=== PATIENT | female | born 1965 | race Caucasian/White ===

== ENCOUNTER 2016-05-17 19:06 | Emergency (ER) | payer OTHER ==
--- NOTE | 2016-05-17 19:57 | DIAGNOSTIC IMAGING REPORT ---
PROCEDURE: CT ABDOMEN/PELVIS W/O CONTRAST INDICATION: Lower abdominal pain and nausea. TECHNIQUE: Noncontrast axial images were obtained of the entire abdomen and pelvis with sagittal and coronal reformations. COMPARISON: None. FINDINGS: ABDOMEN: Lung base are clear. Heart size is normal. Bilateral breast implants. Cholecystectomy. Liver, pancreas, spleen, adrenal glands, kidneys and abdominal aorta are normal. Small shotty periaortic lymph nodes. PELVIS: Cassie cecal surgical changes suggestive of an appendectomy. Moderate sigmoid diverticulosis with mild inflammatory changes of the mid sigmoid colon and trace free fluid. There is no abscess or free air. Hysterectomy. Normal bladder. Bones are unremarkable . IMPRESSION: 1. Sigmoid diverticulitis. No abscess or free air. 2. Cholecystectomy, appendectomy and hysterectomy 3. Results discussed with Dr. Abrams All CT scans at this facility use dose modulation, iterative reconstruction, and/or weight-based dosing when appropriate to reduce radiation dose to as low as reasonably achievable.
--- NOTE | 2016-05-17 20:35 | ED CLINICAL REPORT ---
Clinical Report - Physicians/Mid Levels [facility] [address] [place] [address] 05/17/2016 19:07 Patient: RUBY JONES Time Seen: 19:15. Arrived- By private vehicle. Historian- patient. HISTORY OF PRESENT ILLNESS Chief Complaint: ABDOMINAL PAIN. At its maximum, severity described as moderate. When seen in the E.D., severity described as moderate. Modifying factors- worsened by movement. Relieved by rest. This started several days ago and is still present. It was gradual in onset and has been waxing/waning. It is described as "pain" and dull. No radiation. It is described as located in the right lower quadrant, right pelvis, left lower quadrant and left pelvis and in the lower abdomen. It is described as located in the pelvic area. The patient has had nausea. No vomiting or diarrhea. Similar symptoms previously: Recent medical care: The patient was seen recently at another facility in a clinic. Diagnosis: diverticulitis. ( Seen at [facility] and clinically diagnosed with diverticulitis and begun on Augmentin 2 days ago). REVIEW OF SYSTEMS No constipation, black stools, hematemesis, difficulty with urination or pain with urination. No bloody stools, fever, sore throat, chest pain or difficulty breathing. No cough or back pain. Denies current . All systems otherwise negative, except as recorded above. PAST HISTORY See nurses notes. Hypothyroidism. Diverticulitis. Depression. Surgeries: Appendectomy. Cholecystectomy. Had hysterectomy. Laparoscopy. Oophorectomy. Medications: Augmentin Oral 875 mg, 2x a day. Levothyroxine Sodium Oral 50 mcg, daily. Sertraline HCl Oral 50 mg, daily. Tramadol HCL Oral 50 mg, 4x a day as needed. Estrodigrel. Allergies: Iodine. Definite Severe(SOB). SOCIAL HISTORY Smoker- current status unknown. Alcohol use; consumes two glasses of wine daily. No drug use. Is a local resident. ADDITIONAL NOTES The nursing notes have been reviewed. PHYSICAL EXAM Vital Signs: 05/17/2016 19:14 BP: 150/86. HR: 119. RR: 12. O2 saturation: 97%. Temp: 98 F. Pain level now: 10. Appearance: Alert. Oriented X3. Patient in mild distress. Eyes: Eyes normal inspection. No scleral icterus or pale conjunctivae. ENT: Pharynx normal. No pharyngeal erythema or tonsillar exudate. The mucous membranes are not dry. Neck: Normal inspection. Neck supple. CVS: Normal heart rate and rhythm. Heart sounds normal. Pulses normal. Respiratory: No respiratory distress. Breath sounds normal. Back: Normal inspection. No CVA tenderness. Skin: Skin warm and dry. Normal skin color. Normal skin turgor. Extremities: Extremities exhibit normal ROM. No lower extremity edema. Neuro: Oriented X 3. No motor deficit. No sensory deficit. LABS, X-RAYS, AND EKG Abdominal CT: There is evidence of diverticulitis. No inflammatory phlegmon, focal abscess or perforation with free air. Study type: abdomen and pelvis. Abdominal CT performed with contrast and without contrast. The study was independently viewed by me, interpreted by the radiologist and discussed with the radiologist. Laboratory Tests: UA-Culture if indicated: (JUN: 05/17/2016 19:18) ( Mscvd 05/17/2016 19:47) Final results Test Result Flag Units (Reference) URINE COLOR YELLOW URINE APPEARANCE CLEAR URINE GLUCOSE NEGATIVE (NEGATIVE) URINE BILIRUBIN NEGATIVE (NEGATIVE) URINE KETONE NEGATIVE (NEGATIVE) URINE SPECIFIC GRAVITY 1.025 (1.010-1.030) URINE PH 6.0 (5.0-8.0) URINE PROTEIN NEGATIVE (NEGATIVE) URINE UROBILINOGEN >=8.0 EU/dL (0.2-1.0) URINE NITRITE NEGATIVE (NEGATIVE) URINE BLOOD NEGATIVE (NEGATIVE) URINE LEUK ESTERASE NEGATIVE (NEGATIVE) URINE RBC NONE SEEN rbc/hpf (0-1) URINE WBC 0-1 wbc/hpf (0-1) URINE EPITHELIAL CELLS 1-3 EPI/hpf (0-5) URINE BACTERIA NONE SEEN (NONE SEEN) URINE COMMENT CULT NOT INDICATED URINE CULTURES ARE SET-UP BASED ON THE FOLLOWING CRITERIA:POSITIVE NITRITEPOSITIVE LEUKOCYTE ESTERASEGREATER THAN 10 WHITE BLOOD CELLSMODERATE (2+) OR GREATER BACTERIA CBC w Diff: (JUN: 05/17/2016 19:18) ( MsgRcvd 05/17/2016 19:33) Final results Test Result Flag Units (Reference) WHITE BLOOD COUNT 14.1 H K/uL (4.5-11.5) RED BLOOD COUNT 4.18 M/uL (4.00-5.20) HEMOGLOBIN 14.4 gm/dL (12.0-16.0) HEMATOCRIT 42.2 % (36.0-46.0) MEAN CELL VOLUME 101 H fL (80-100) MEAN CORPUSCULAR HGB 34 pg (26-34) MEAN CORPUSCULAR HGB CONC 34 g/dL (31-37) RED CELL DISTRIBUTION WIDTH 13.3 % (11.6-14.8) PLATELET COUNT 267 K/uL (150-400) NEUTROPHIL % 75.5 H % (50-75) LYMPH % 16.4 L % (25-40) MONO % 5.9 % (3-14) EOSINOPHIL % 1.6 % (0-4) BASOPHIL % 0.6 % (0-2) PT with INR: (JUN: 05/17/2016 19:18) ( [facility] 05/17/2016 19:50) Final results Test Result Flag Units (Reference) INR 1.0 (0.8-1.2) Low Intensity Therapy: INR 1.5-2.0 PT range 18.5-23.1Mod.Intensity Therapy: INR 2.0-3.0 PT range 23.1-31.5High Intensity Therapy: INR 2.5-3.5 PT range 27.4-35.5High Intensity Therapy 2: INR 3.0-4.0 PT range 31.5-39.3 TSH: (JUN: 05/17/2016 19:25) ( [facility] 05/17/2016 20:00) Final results Test Result Flag Units (Reference) THYROID STIMULATING HORMONE 4.911 H uIU/mL (0.34-3.74) BNP: (JUN: 05/17/2016 19:25) ( [facility] 05/17/2016 20:11) Final results Test Result Flag Units (Reference) B-TYPE NATRIURETIC PEPTIDE 33.1 pg/ml (5-100) Lipase: (JUN: 05/17/2016 19:25) ( [facility] 05/17/2016 19:52) Final results Test Result Flag Units (Reference) LIPASE 141 U/L (73-393) AMYLASE 22 L U/L (25-115) CHEM 13 PANEL: (JUN: 05/17/2016 19:18) ( [facility] 05/17/2016 19:49) Final results Test Result Flag Units (Reference) GLUCOSE 119 H mg/dL (70-110) BUN 8 mg/dL (7-18) CREATININE 0.8 mg/dL (0.6-1.3) Estimated GFR >60 mL/min Estimated GFR- >60 mL/min Note: Persistent reduction over 3 months in eGFR<60 mL/min/1.73 m2 defines CKD. Patients with eGFR values>=60 mL/min/1.73 m2 may also have CKD if evidence ofpersistent proteinuria. Additional information may be foundat www.kidney.org. SODIUM 136 mmol/L (136-145) POTASSIUM 3.8 mmol/L (3.5-5.1) CHLORIDE 102 mmol/L (98-107) CARBON DIOXIDE 26 mmol/L (21-32) CALCIUM 9.3 mg/dL (8.5-10.1) TOTAL PROTEIN 8.0 g/dL (6.4-8.2) ALBUMIN 3.7 g/dL (3.3-5.0) BILIRUBIN, TOTAL 1.6 H mg/dL (0.0-1.0) ALKALINE PHOSPHATASE 91 U/L (46-116) AST (SGOT) 41 H U/L (15-37) ALT (SGPT) 53 U/L (12-78) MAGNESIUM 2.1 mg/dL (1.8-2.4) CPK 60 U/L (24-260) TROPONIN I <0.05 L ng/mL (0.00-1.5) TROPONIN REFERENCE RANGE:<0.1 NEGATIVE0.1-1.5 INDETERMINANT>1.5 POSITIVE . Pulse Oximetry: 05/17/2016 19:14 O2 saturation: 97%. (FIO2 - room air). Interpretation: normal. PROGRESS AND PROCEDURES Course of Care: Normal Saline 1 liter IVPB given. Zofran 4 mg IVP given. Dilaudid 1 mg IVP given. Pt reports "iodine allergy" - had reaction after IV contrast for ?abdominal CT" - reaction was ?palpitations (no SOB, swelling or hives) and occurred over [address] abd c/w mild acute diverticulitis 22:15. Evaluation after IV analgesia, IV antibiotics and IV antiemetic. Patient is stable. Physical exam findings are improved. Symptoms much better. Patient/family counseled. Disposition: Discharged. Condition: stable and improved. CLINICAL IMPRESSION Acute diverticulitis of the colon. No perforation, bleeding, abscess, peritonitis or obstruction. Moderate leukocytosis. No lymphocytosis. INSTRUCTIONS Drink plenty of fluids. No alcohol until released. Do not smoke. Seek medical help to quit smoking. (Mandatory recheck in 24 - 48 hours unless better). Warnings: Further evaluation is necessary in order to recheck abnormal lab, obtain test results, conduct further tests and assess the possibility of serious illness. It is very important to follow up with a physician. SEDATIVE MEDICATION: You were given sedative medication during your visit. Do not drive or operate dangerous machinery. CONTROLLED SUBSTANCE WARNINGS. GENERAL WARNINGS: Return or contact your physician immediately if your condition worsens or changes unexpectedly, if not improving as expected, or if other problems arise. Your Current Medications: STOP TAKING THE FOLLOWING MEDICATIONS: Augmentin Oral : 875 mg 2x a day. Prescription Medications: Cipro 500 mg: take 1 tab orally every 12 hours for 10 days. Dispense twenty (20). No refills. Substitution is permissible. Flagyl 500 mg: Take 1 tablet orally every 6 hours for 10 days. No refill. Substitution is permissible Oxycodone/APAP 5 mg/325 mg: take 1-2 tablets orally every 8 hours as needed for pain. Dispense twelve (12). No refill. Follow-up: Follow up with your doctor in about two days. (Electronically signed by Bentley Abrams DO 05/17/2016 22:25)
--- NOTE | 2016-05-17 20:35 | ED CLINICAL REPORT ---
Clinical Report - Physicians/Mid Levels [facility] [address] [place] [address] 05/17/2016 19:07 Patient: RUBY JONES Time Seen: 19:15. Arrived- By private vehicle. Historian- patient. HISTORY OF PRESENT ILLNESS Chief Complaint: ABDOMINAL PAIN. At its maximum, severity described as moderate. When seen in the E.D., severity described as moderate. Modifying factors- worsened by movement. Relieved by rest. This started several days ago and is still present. It was gradual in onset and has been waxing/waning. It is described as "pain" and dull. No radiation. It is described as located in the right lower quadrant, right pelvis, left lower quadrant and left pelvis and in the lower abdomen. It is described as located in the pelvic area. The patient has had nausea. No vomiting or diarrhea. Similar symptoms previously: Recent medical care: The patient was seen recently at another facility in a clinic. Diagnosis: diverticulitis. ( Seen at [facility] and clinically diagnosed with diverticulitis and begun on Augmentin 2 days ago). REVIEW OF SYSTEMS No constipation, black stools, hematemesis, difficulty with urination or pain with urination. No bloody stools, fever, sore throat, chest pain or difficulty breathing. No cough or back pain. Denies current . All systems otherwise negative, except as recorded above. PAST HISTORY See nurses notes. Hypothyroidism. Diverticulitis. Depression. Surgeries: Appendectomy. Cholecystectomy. Had hysterectomy. Laparoscopy. Oophorectomy. Medications: Augmentin Oral 875 mg, 2x a day. Levothyroxine Sodium Oral 50 mcg, daily. Sertraline HCl Oral 50 mg, daily. Tramadol HCL Oral 50 mg, 4x a day as needed. Estrodigrel. Allergies: Iodine. Definite Severe(SOB). SOCIAL HISTORY Smoker- current status unknown. Alcohol use; consumes two glasses of wine daily. No drug use. Is a local resident. ADDITIONAL NOTES The nursing notes have been reviewed. PHYSICAL EXAM Vital Signs: 05/17/2016 19:14 BP: 150/86. HR: 119. RR: 12. O2 saturation: 97%. Temp: 98 F. Pain level now: 10. Appearance: Alert. Oriented X3. Patient in mild distress. Eyes: Eyes normal inspection. No scleral icterus or pale conjunctivae. ENT: Pharynx normal. No pharyngeal erythema or tonsillar exudate. The mucous membranes are not dry. Neck: Normal inspection. Neck supple. CVS: Normal heart rate and rhythm. Heart sounds normal. Pulses normal. Respiratory: No respiratory distress. Breath sounds normal. Back: Normal inspection. No CVA tenderness. Skin: Skin warm and dry. Normal skin color. Normal skin turgor. Extremities: Extremities exhibit normal ROM. No lower extremity edema. Neuro: Oriented X 3. No motor deficit. No sensory deficit. LABS, X-RAYS, AND EKG Abdominal CT: There is evidence of diverticulitis. No inflammatory phlegmon, focal abscess or perforation with free air. Study type: abdomen and pelvis. Abdominal CT performed with contrast and without contrast. The study was independently viewed by me, interpreted by the radiologist and discussed with the radiologist. Laboratory Tests: UA-Culture if indicated: (JUN: 05/17/2016 19:18) ( Mscvd 05/17/2016 19:47) Final results Test Result Flag Units (Reference) URINE COLOR YELLOW URINE APPEARANCE CLEAR URINE GLUCOSE NEGATIVE (NEGATIVE) URINE BILIRUBIN NEGATIVE (NEGATIVE) URINE KETONE NEGATIVE (NEGATIVE) URINE SPECIFIC GRAVITY 1.025 (1.010-1.030) URINE PH 6.0 (5.0-8.0) URINE PROTEIN NEGATIVE (NEGATIVE) URINE UROBILINOGEN >=8.0 EU/dL (0.2-1.0) URINE NITRITE NEGATIVE (NEGATIVE) URINE BLOOD NEGATIVE (NEGATIVE) URINE LEUK ESTERASE NEGATIVE (NEGATIVE) URINE RBC NONE SEEN rbc/hpf (0-1) URINE WBC 0-1 wbc/hpf (0-1) URINE EPITHELIAL CELLS 1-3 EPI/hpf (0-5) URINE BACTERIA NONE SEEN (NONE SEEN) URINE COMMENT CULT NOT INDICATED URINE CULTURES ARE SET-UP BASED ON THE FOLLOWING CRITERIA:POSITIVE NITRITEPOSITIVE LEUKOCYTE ESTERASEGREATER THAN 10 WHITE BLOOD CELLSMODERATE (2+) OR GREATER BACTERIA CBC w Diff: (JUN: 05/17/2016 19:18) ( MsgRcvd 05/17/2016 19:33) Final results Test Result Flag Units (Reference) WHITE BLOOD COUNT 14.1 H K/uL (4.5-11.5) RED BLOOD COUNT 4.18 M/uL (4.00-5.20) HEMOGLOBIN 14.4 gm/dL (12.0-16.0) HEMATOCRIT 42.2 % (36.0-46.0) MEAN CELL VOLUME 101 H fL (80-100) MEAN CORPUSCULAR HGB 34 pg (26-34) MEAN CORPUSCULAR HGB CONC 34 g/dL (31-37) RED CELL DISTRIBUTION WIDTH 13.3 % (11.6-14.8) PLATELET COUNT 267 K/uL (150-400) NEUTROPHIL % 75.5 H % (50-75) LYMPH % 16.4 L % (25-40) MONO % 5.9 % (3-14) EOSINOPHIL % 1.6 % (0-4) BASOPHIL % 0.6 % (0-2) PT with INR: (JUN: 05/17/2016 19:18) ( [facility] 05/17/2016 19:50) Final results Test Result Flag Units (Reference) INR 1.0 (0.8-1.2) Low Intensity Therapy: INR 1.5-2.0 PT range 18.5-23.1Mod.Intensity Therapy: INR 2.0-3.0 PT range 23.1-31.5High Intensity Therapy: INR 2.5-3.5 PT range 27.4-35.5High Intensity Therapy 2: INR 3.0-4.0 PT range 31.5-39.3 TSH: (JUN: 05/17/2016 19:25) ( [facility] 05/17/2016 20:00) Final results Test Result Flag Units (Reference) THYROID STIMULATING HORMONE 4.911 H uIU/mL (0.34-3.74) BNP: (JUN: 05/17/2016 19:25) ( [facility] 05/17/2016 20:11) Final results Test Result Flag Units (Reference) B-TYPE NATRIURETIC PEPTIDE 33.1 pg/ml (5-100) Lipase: (JUN: 05/17/2016 19:25) ( [facility] [place]/17/[place] 19:52) Final results Test Result Flag Units (Reference) LIPASE 141 U/L (73-393) AMYLASE 22 L U/L (25-115) CHEM 13 PANEL: (JUN: 05/17/2016 19:18) ( [facility] 05/17[facility]2016 19:49) Final results Test Result Flag Units (Reference) GLUCOSE 119 H mg/dL (70-110) BUN 8 mg/dL (7-18) CREATININE 0.8 mg/dL (0.6-1.3) Estimated GFR >60 mL/min Estimated GFR- >60 mL/min Note: Persistent reduction over 3 months in eGFR<60 mL/min/1.73 m2 defines CKD. Patients with eGFR values>=60 mL/min/1.73 m2 may also have CKD if evidence ofpersistent proteinuria. Additional information may be foundat www.kidney.org. SODIUM 136 mmol/L (136-145) POTASSIUM 3.8 mmol/L (3.5-5.1) CHLORIDE 102 mmol/L (98-107) CARBON DIOXIDE 26 mmol/L (21-32) CALCIUM 9.3 mg/dL (8.5-10.1) TOTAL PROTEIN 8.0 g/dL (6.4-8.2) ALBUMIN 3.7 g/dL (3.3-5.0) BILIRUBIN, TOTAL 1.6 H mg/dL (0.0-1.0) ALKALINE PHOSPHATASE 91 U/L (46-116) AST (SGOT) 41 H U/L (15-37) ALT (SGPT) 53 U/L (12-78) MAGNESIUM 2.1 mg/dL (1.8-2.4) CPK 60 U/L (24-260) TROPONIN I <0.05 L ng/mL (0.00-1.5) TROPONIN REFERENCE RANGE:<0.1 NEGATIVE0.1-1.5 INDETERMINANT>1.5 POSITIVE . Pulse Oximetry: 05/17/2016 19:14 O2 saturation: 97%. (FIO2 - room air). Interpretation: normal. PROGRESS AND PROCEDURES Course of Care: Normal Saline 1 liter IVPB given. Zofran 4 mg IVP given. Dilaudid 1 mg IVP given. Pt reports "iodine allergy" - had reaction after IV contrast for ?abdominal CT" - reaction was ?palpitations (no SOB, swelling or hives) and occurred over [address] abd c/w mild acute diverticulitis 22:15. Evaluation after IV analgesia, IV antibiotics and IV antiemetic. Patient is stable. Physical exam findings are improved. Symptoms much better. Patient/family counseled. Disposition: Discharged. Condition: stable and improved. CLINICAL IMPRESSION Acute diverticulitis of the colon. No perforation, bleeding, abscess, peritonitis or obstruction. Moderate leukocytosis. No lymphocytosis. INSTRUCTIONS Drink plenty of fluids. No alcohol until released. Do not smoke. Seek medical help to quit smoking. (Mandatory recheck in 24 - 48 hours unless better). Warnings: Further evaluation is necessary in order to recheck abnormal lab, obtain test results, conduct further tests and assess the possibility of serious illness. It is very important to follow up with a physician. SEDATIVE MEDICATION: You were given sedative medication during your visit. Do not drive or operate dangerous machinery. CONTROLLED SUBSTANCE WARNINGS. GENERAL WARNINGS: Return or contact your physician immediately if your condition worsens or changes unexpectedly, if not improving as expected, or if other problems arise. Your Current Medications: STOP TAKING THE FOLLOWING MEDICATIONS: Augmentin Oral : 875 mg 2x a day. Prescription Medications: Cipro 500 mg: take 1 tab orally every 12 hours for 10 days. Dispense twenty (20). No refills. Substitution is permissible. Flagyl 500 mg: Take 1 tablet orally every 6 hours for 10 days. No refill. Substitution is permissible Oxycodone/APAP 5 mg/325 mg: take 1-2 tablets orally every 8 hours as needed for pain. Dispense twelve (12). No refill. Follow-up: Follow up with your doctor in about two days. (Electronically signed by Bentley Abrams DO 05/17/2016 22:25)
--- NOTE | 2016-05-17 20:36 | ED NURSING NOTES ---
Clinical Report - Nurses [facility] [address] [place] [address] 05/17/2016 19:07 Patient: RUBY JONES TRIAGE Triage time 19:14 May 17 2016. Acuity: LEVEL 3. Chief Complaint: ABDOMINAL PAIN and NAUSEA. Alert. BEN COMA SCORE: [place] Coma Scale: 15- eyes open spontaneously (4); best verbal response- oriented x 4 (5); best motor response- obeys commands (6). --19:33 Sadi Lackey R.N. 19:14 05/17/16. BP: 150/86. HR: 119. RR: 12. O2 saturation: 97% on room air. Temp: 98 F. Pain level now: 410. Additional comments: Abd pain. --19:33 Sadi Lackey R.N. Weight: 70.7 kg stated. Height/Length: 63 inches Per Patient. BMI: 27.6. --19:16 Sadi Lackey R.N. Medications Estrodigrel. --19:20 Sadi Lackey R.N. Tramadol HCL Oral 50 mg, 4x a day as needed. --19:20 Sadi Lackey R.N. Sertraline HCl Oral 50 mg, daily. --19:20 Sadi Lackey R.N. Levothyroxine Sodium Oral 50 mcg, daily. --19:21 Sadi Lackey R.N. Augmentin Oral 875 mg, 2x a day. --19:22 Sadi Lackey R.N. Allergies Iodine. Definite Severe(SOB) --19:25 Sadi Lackey R.N. Medication/allergy information source: the patient. --19:33 Sadi Lackey R.N. History Arrived by private vehicle. Historian: patient. ( abdominal Pain, which started about 3 days ago. Pt states a hx of Diverticulitis.). Onset. (about 3 days ago). She has had nausea and abdominal pain. Last oral intake by patient was (about 1 hour (scrambled egg)). Treatment CUSTOMER TECHNICAL SERVICES MANAGER: ([facility] and [facility] [place] on Tramadol and Augmentin and told to come to the ED if she didn't improve.). PAST MEDICAL HX: Immunizations: status is unknown. The patient has had a hysterectomy. SOCIAL HX: Heavy tobacco smoker (cigarette)- 1 pack per day. Alcohol use; consumes two wine daily. No drug use. No recent travel. No infectious disease exposure. No known contact with a sick individual. ABUSE ASSESSMENT: No report of abuse. FALL RISK ASSESSMENT: Fall risk assessment completed. No fall risk identified. NUTRITIONAL RISK ASSESSMENT: The nutritional risk assessment revealed no deficiencies. FUNCTIONAL ASSESSMENT: Functional assessment: no impairments noted. LEARNING NEEDS ASSESSMENT: The learning needs assessment revealed no barriers. SKIN INTEGRITY ASSESSMENT: Skin integrity risk assessment completed. No skin integrity risk identified. --19:33 Sadi Lackey R.N. PROBLEMS: Thyroid Disease. Diverticulitis. --19:29 Sadi Lackey R.N. ADDITIONAL SURGERIES: Appendectomy. Cholecystectomy. Oophorectomy. Salpingectomy. --19:29 Sadi Lackey R.N. Interventions ID band on patient. To treatment room. --19:33 Sadi Lackey R.N. PHYSICAL ASSESSMENT Ambulatory to room. GENERAL / NEURO / PSYCH: Alert. Oriented X 4. HEENT: Mucous membranes are pink. RESPIRATORY: Respirations not labored. CVS: Cardiac rhythm: (tachycardia). GI / : Abdominal tenderness in the periumbilical area, suprapubic area and lower abdomen. SKIN: Skin is warm and dry. --19:34 Sadi Lackey R.N. NURSING PROGRESS NOTES Patient gowned. Reassurance given. Patient identifiers checked. Call light placed in reach. Side rails up. Bed placed in lowest position. Brakes of bed on. Patient ready for evaluation- chart flagged and ED physician notified. --19:34 Sadi Lackey R.N. 19:21 05/17/2016 Site #1 started via IV in the left antecubital space with an 20g angiocath, with aseptic technique and good blood return; one attempt. Blood drawn: rainbow set. Labeled in the presence of the patient and sent to the lab. Saline lock flushed with 10 mL saline (start by KVNG Brownlee). --19:36 Sadi Lackey R.N. 19:40 05/17/2016 Started bag #1 1000 mL IV Fluids IV NS (Saline); at 1000 mL/hr over 60 minute(s) via site #1. Allergies verified and confirmed 5 rights. IV patency established. IV site checked: no pain, redness, or swelling. IV flushed thoroughly pre- and post-medication administration. --19:45 Sadi Lackey R.N. Patient transported to CT by stretcher with tech. (:May 17 2016). --19:46 Sadi Lackey R.N. Patient returned from CT by stretcher with tech. (May 17 2016). --19:46 Sadi Lackey R.N. 19:45 05/17/16. Temp: 100.4 F. --19:48 Sadi Lackey R.N. 19:49 05/17/2016 Zofran (Ondansetron HCl) IVP 4 mg given over 2 minute(s) via site #1. Allergies verified and confirmed 5 rights. IV patency established. IV site checked: no pain, redness, or swelling. IV flushed thoroughly pre- and post-medication administration. IVP given by RN. --19:55 Sadi Lackey R.N. 19:50 05/17/2016 Dilaudid (HYDROmorphone HCl PF) IVP 1 mg given over 2 minute(s) via site #1. Allergies verified, confirmed 5 rights and sedative warning given. IV patency established. IV site checked: no pain, redness, or swelling. IV flushed thoroughly pre- and post-medication administration. IVP given by RN. --19:55 Sadi Lackey R.N. 19:30 late entry -. Checked patient name, birthdate and medical record number: patient confirmed. Instructions provided to collect clean catch urine and patient verbalized understanding. Clean catch urine collected with return of jose-colored clear urine; odor is normal; sample sent to lab for urinalysis and culture. Specimen labeled in the presence of the patient. --19:56 Sadi Lackey R.N. 20:40 05/17/2016 Started 500 mg of Flagyl (MetroNIDAZOLE in NaCl) IVPB in bag #1 100 mL; at 100 mL/hr over 60 minute(s) via site #1 via IV pump. Allergies verified and confirmed 5 rights. IV patency established. IV site checked: no pain, redness, or swelling. IV flushed thoroughly pre- and post-medication administration. --20:50 Sadi Lackey R.N. 20:52 05/17/2016 Levaquin (Levofloxacin) PO Tablets 750 mg given. Allergies verified and confirmed 5 rights. --20:57 Sadi Lackey R.N. 21:47 05/17/2016 Flagyl IVPB Discontinued: bag #1 completed. Total amount infused: 100 mL. IV patency established. IV site checked: no pain, redness, or swelling. IV flushed thoroughly. --21:48 Junior Babin 20:00 05/17/16. BP: 123/78. HR: 94. RR: 16. O2 saturation: 97% on room air. Pain level now: 0/10. --23:00 Sadi Lackey R.N. DISPOSITION / DISCHARGE Departure time: 0. --22:52 Sadi Lackey R.N. 22:00 05/17/16. BP: 121/76. HR: 94. RR: 16. O2 saturation: 98% on room air. Temp: 99.6 F. Pain level now: 1/10. Additional comments: Abdominal Pain. --22:55 Sadi Lackey R.N. 22:10. Condition at departure: improved. No learning barriers present. Discharge instructions provided and reviewed with the patient. Reviewed medication(s) precautions information. Reviewed referral to family practice for followup. Patient verbalized understanding. Written instructions provided in Kyrgyz. The patient was discharged by the physician. She was discharged home and accompanied by spouse. She left the Emergency Department ambulatory and via private vehicle. Spouse driving. --22:57 Sadi Lackey R.N. Locked/Released at 05/17/2016 23:01 by Sadi Lackey R.N.
--- NOTE | 2016-05-17 20:36 | ED ORDER SUMMARY ---
..... Patient: RUBY JONES OrderSheet [facility] VisitID: [id number] [address] [place] [address] 51y, F Registration Date/Time: 05/17/2016 ORDER SHEET Weight: 70.7 kg (stated) Allergies: Iodine GENERAL ORDERS: UA-Culture if indicated Urgent (19:16 05/17/2016 [facility] (Ack 19:24 CHategekimana) (19:45 JRomanelli R.N.) Amylase Urgent (19:16 05/17/2016 PHutchinson DO) (Ack 19:24 CHategekimana) (19:45 JRomanelli R.N.) Lipase Urgent (19:16 05/17/2016 [facility]) (Ack 19:24 CHategekimana) (19:45 JRomanelli R.N.) PT with INR Urgent (19:16 05/17/2016 [facility]) (Ack 19:24 Estuardoekimana) (19:45 JRomanelli R.N.) Cardiac Panel Stat (19:16 [facility]17/2016 [facility] (Ack 19:24 Estuardoekimana) (19:45 JRomanelli R.N.) BNP Urgent (19:16 05/17/2016 [facility] (Ack 19:24 Estuardoekimana) (19:45 JRomanelli R.N.) NPO (19:16 05/17/2016 [facility]) (19:45 JRomanelli R.N.) CT Abd/Pel wo Cont Urgent (19:31 05/17/2016 PHgachinson DO) (19:45 JRomanelli R.N.) TSH Urgent (19:35 05/17/2016 [facility]) (19:45 JRomanelli R.N.) MEDICATION ORDERS: Levaquin PO 750 mg (NOW) (19:57 05/17/2016 [facility]) (20:57 JRomanelli R.N.) IV FLUIDS: IV NS : initial bolus 1000 mL (1000 mL/hr), then 500 mL/hr for X2 (NOW) (19:16 05/17/2016 Hailey AGRAWAL) (19:45 Vamsi R.N.) Zofran IV 4 mg (NOW) (19:16 05/17/2016 [facility]) (19:55 Vamsi R.N.) Dilaudid IV 1 mg (HIGH ALERT MEDICATION, NOW) (19:38 05/17/2016 [facility]) (19:55 Vamsi R.N.) Flagyl IV 500 mg/100mL (NOW) (19:57 05/17/2016 [facility]) (20:50 Vamsi R.N.) ORDER SHEET NOTES: [Electronically signed by Bentley Abrams DO (22:25 05/17/2016)] [Electronically signed by Sadi Lackey R.N. (23:05/17/2016)] [Electronically locked/signed by Sadi Lackey R.N. (23:05/17/2016)]
--- NOTE | 2016-05-17 20:36 | ED ORDER SUMMARY ---
..... Patient: RUBY JONES OrderSheet [facility] VisitID: [id number] [address] [place] [address] 51y, F Registration Date/Time: 05/17/2016 ORDER SHEET Weight: 70.7 kg (stated) Allergies: Iodine GENERAL ORDERS: UA-Culture if indicated Urgent (19:16 05/17/2016 [facility] (Ack 19:24 CHategekimana) (19:45 JRomanelli R.N.) Amylase Urgent (19:16 05/17/2016 PHutchinson DO) (Ack 19:24 CHategekimana) (19:45 JRomanelli R.N.) Lipase Urgent (19:16 05/17/2016 [facility]) (Ack 19:24 CHategekimana) (19:45 JRomanelli R.N.) PT with INR Urgent (19:16 05/17/2016 [facility]) (Ack 19:24 Estuardoekimana) (19:45 JRomanelli R.N.) Cardiac Panel Stat (19:16 [facility]17/2016 [facility] (Ack 19:24 Estuardoekimana) (19:45 JRomanelli R.N.) BNP Urgent (19:16 05/17/2016 [facility] (Ack 19:24 Estuardoekimana) (19:45 JRomanelli R.N.) NPO (19:16 05/17/2016 [facility]) (19:45 JRomanelli R.N.) CT Abd/Pel wo Cont Urgent (19:31 05/17/2016 PHalchinson DO) (19:45 JRomanelli R.N.) TSH Urgent (19:35 [facility]/17/2016 [facility] (19:45 JRomanelli R.N.) MEDICATION ORDERS: Levaquin PO 750 mg (NOW) (19:57 05/17/2016 [facility]) (20:57 JRomanelli R.N.) IV FLUIDS: IV NS : initial bolus 1000 mL (1000 mL/hr), then 500 mL/hr for X2 (NOW) (19:16 05/17/2016 Hailey AGRAWAL) (19:45 Vamsi R.N.) Zofran IV 4 mg (NOW) (19:16 05/17/2016 [facility] (19:55 Vamsi R.N.) Dilaudid IV 1 mg (HIGH ALERT MEDICATION, NOW) (19:38 05/17/2016 [facility] (19:55 Vamsi R.N.) Flagyl IV 500 mg/100mL (NOW) (19:57 05/17/2016 [facility] (20:50 Vamsi R.N.) ORDER SHEET NOTES: [Electronically signed by Bentley Abrams DO (22:25 05/17/2016)] [Electronically signed by Sadi Lackey R.N. (23:05/17/2016)] [Electronically locked/signed by Sadi Lackey R.N. (23:05/17/2016)]
--- NOTE | 2016-05-17 23:01 | ED MED RECONCILIATION SUMMARY ---
Patient: RUBY JONES Medication Reconciliation Report [facility] VisitID: [id number] [address] [place] [address] 51y, F Registration Date/Time: 05/17/2016 Weight: 70.7 kg Height/Length: 63 in. BMI: 27.6 ALLERGIES: Iodine The patient's Home Medications are listed below: STOP TAKING THE FOLLOWING MEDICATIONS: Augmentin Oral 875 mg, 2x a day THE FOLLOWING MEDICATIONS NEED TO BE RECONCILED: Estrodigrel Levothyroxine Sodium Oral 50 mcg, daily Sertraline HCl Oral 50 mg, daily Tramadol HCL Oral 50 mg, 4x a day The source(s) of the original Home Medication information: patient The following Medications were given to the patient in the Emergency Department: IV NS IV Fluids bolus 0, then 1000 mL/hr, administered: 05/17/2016 7:40:00 PM Zofran [IVP] IVP 4 mg, administered: 05/17/2016 7:49:00 PM Dilaudid [IVP] IVP 1 mg, administered: 05/17/2016 7:50:00 PM Flagyl [IVPB] IVPB bolus 0, then 500 mg 100 mL/hr, administered: 05/17/2016 8:40:00 PM Levaquin [PO] PO 750 mg, administered: 05/17/2016 8:52:00 PM The following Medications were prescribed to the patient: Cipro 500 mg: take 1 tab orally every 12 hours for 10 days. Dispense twenty (20). No refills. Substitution is permissible. -- Bentley Abrams DO Flagyl 500 mg: Take 1 tablet orally every 6 hours for 10 days. No refill. Substitution is permissible -- Bentley Abrams DO Oxycodone/APAP 5 mg/325 mg: take 1-2 tablets orally every 8 hours as needed for pain. Dispense twelve (12). No refill. -- Bentley Abrams DO
--- NOTE | 2016-05-17 23:01 | ED MAR SUMMARY ---
..... Medication Administration Record [facility] [address] [place] [address] Patient: RUBY JONES Visit ID: [id number] 51y, F Weight: 70.7 kg Height/Length: 63 in BMI: 27.6 ALLERGIES: Iodine Start 19:40 05/17/2016 Sadi Lackey R.N. Medication Administered: IV NS (SALINE), Dose: IV Fluids over 60 minute(s), Rate: 1000 mL/hr, Dispensed: 1000 mL bag, Site: #1 left AC. Medication Ordered: IV NS : initial bolus 1000 mL (1000 mL/hr), then 500 mL/hr for X2 (NOW). Given 19:49 05/17/2016 Sadi Lackey R.N. Medication Administered: ZOFRAN [IVP] (ONDANSETRON HCL), Dose: 4 mg IVP over 2 minute(s), Site: #1 left AC. Medication Ordered: Zofran IV 4 mg (NOW). Given 19:50 05/17/2016 Sadi Lackey R.N. Medication Administered: DILAUDID [IVP] (HYDROMORPHONE HCL PF), Dose: 1 mg IVP over 2 minute(s), Site: #1 left AC. Medication Ordered: Dilaudid IV 1 mg (HIGH ALERT MEDICATION, NOW). Start 20:40 05/17/2016 Sadi Lackey R.NGabriel, Stop 21:47 05/17/2016 Junior Babin Medication Administered: FLAGYL [IVPB] (METRONIDAZOLE IN NACL), Dose: 500 mg IVPB over 60 minute(s), Rate: 100 mL/hr, Dispensed: 100 mL bag, Site: #1 left AC. Medication Ordered: Flagyl IV 500 mg/100mL (NOW). Given 20:52 05/17/2016 Sadi Lackey R.N. Medication Administered: LEVAQUIN [PO] (LEVOFLOXACIN), Dose: 750 mg Tablets PO. Medication Ordered: Levaquin PO 750 mg (NOW).
--- NOTE | 2016-05-17 23:01 | ED MAR SUMMARY ---
..... Medication Administration Record [facility] [address] [place] [address] Patient: RUBY JONES Visit ID: [id number] 51y, F Weight: 70.7 kg Height/Length: 63 in BMI: 27.6 ALLERGIES: Iodine Start 19:40 05/17/2016 Sadi Lackey R.N. Medication Administered: IV NS (SALINE), Dose: IV Fluids over 60 minute(s), Rate: 1000 mL/hr, Dispensed: 1000 mL bag, Site: #1 left AC. Medication Ordered: IV NS : initial bolus 1000 mL (1000 mL/hr), then 500 mL/hr for X2 (NOW). Given 19:49 05/17/2016 Sadi Lackey R.N. Medication Administered: ZOFRAN [IVP] (ONDANSETRON HCL), Dose: 4 mg IVP over 2 minute(s), Site: #1 left AC. Medication Ordered: Zofran IV 4 mg (NOW). Given 19:50 05/17/2016 Sadi Lackey R.N. Medication Administered: DILAUDID [IVP] (HYDROMORPHONE HCL PF), Dose: 1 mg IVP over 2 minute(s), Site: #1 left AC. Medication Ordered: Dilaudid IV 1 mg (HIGH ALERT MEDICATION, NOW). Start 20:40 05/17/2016 Sadi Lackey R.NGabriel, Stop 21:47 05/17/2016 Junior Babin Medication Administered: FLAGYL [IVPB] (METRONIDAZOLE IN NACL), Dose: 500 mg IVPB over 60 minute(s), Rate: 100 mL/hr, Dispensed: 100 mL bag, Site: #1 left AC. Medication Ordered: Flagyl IV 500 mg/100mL (NOW). Given 20:52 05/17/2016 Sadi Lackey R.N. Medication Administered: LEVAQUIN [PO] (LEVOFLOXACIN), Dose: 750 mg Tablets PO. Medication Ordered: Levaquin PO 750 mg (NOW).
--- NOTE | 2016-05-17 23:01 | ED MED RECONCILIATION SUMMARY ---
Patient: RUBY JONES Medication Reconciliation Report [facility] VisitID: [id number] [address] [place] [address] 51y, F Registration Date/Time: 05/17/2016 Weight: 70.7 kg Height/Length: 63 in. BMI: 27.6 ALLERGIES: Iodine The patient's Home Medications are listed below: STOP TAKING THE FOLLOWING MEDICATIONS: Augmentin Oral 875 mg, 2x a day THE FOLLOWING MEDICATIONS NEED TO BE RECONCILED: Estrodigrel Levothyroxine Sodium Oral 50 mcg, daily Sertraline HCl Oral 50 mg, daily Tramadol HCL Oral 50 mg, 4x a day The source(s) of the original Home Medication information: patient The following Medications were given to the patient in the Emergency Department: IV NS IV Fluids bolus 0, then 1000 mL/hr, administered: 05/17/2016 7:40:00 PM Zofran [IVP] IVP 4 mg, administered: 05/17/2016 7:49:00 PM Dilaudid [IVP] IVP 1 mg, administered: 05/17/2016 7:50:00 PM Flagyl [IVPB] IVPB bolus 0, then 500 mg 100 mL/hr, administered: 05/17/2016 8:40:00 PM Levaquin [PO] PO 750 mg, administered: 05/17/2016 8:52:00 PM The following Medications were prescribed to the patient: Cipro 500 mg: take 1 tab orally every 12 hours for 10 days. Dispense twenty (20). No refills. Substitution is permissible. -- Bentley Abrams DO Flagyl 500 mg: Take 1 tablet orally every 6 hours for 10 days. No refill. Substitution is permissible -- Bentley Abrams DO Oxycodone/APAP 5 mg/325 mg: take 1-2 tablets orally every 8 hours as needed for pain. Dispense twelve (12). No refill. -- Bentley Abrams DO
--- NOTE | 2016-05-17 23:01 | ED DISCHARGE INSTRUCTIONS ---
Patient: RUBY JONES General Instructions [facility] VisitID: [id number] [place] [address] 51y, F Registration Date/Time: 05/17/2016 Acute diverticulitis of the colon. No perforation, bleeding, abscess, peritonitis or obstruction. Moderate leukocytosis. No lymphocytosis. INSTRUCTIONS Drink plenty of fluids. No alcohol until released. Do not smoke. Seek medical help to quit smoking. (Mandatory recheck in 24 - 48 hours unless better). Warnings: Further evaluation is necessary in order to recheck abnormal lab, obtain test results, conduct further tests and assess the possibility of serious illness. It is very important to follow up with a physician. SEDATIVE MEDICATION: You were given sedative medication during your visit. Do not drive or operate dangerous machinery. CONTROLLED SUBSTANCE WARNINGS. GENERAL WARNINGS: Return or contact your physician immediately if your condition worsens or changes unexpectedly, if not improving as expected, or if other problems arise. Your Current Medications: STOP TAKING THE FOLLOWING MEDICATIONS: Augmentin Oral : 875 mg 2x a day. Prescription Medications: Cipro 500 mg: take 1 tab orally every 12 hours for 10 days. Dispense twenty (20). No refills. Substitution is permissible. Flagyl 500 mg: Take 1 tablet orally every 6 hours for 10 days. No refill. Substitution is permissible Oxycodone/APAP 5 mg/325 mg: take 1-2 tablets orally every 8 hours as needed for pain. Dispense twelve (12). No refill. Follow-up: Follow up with your doctor in about two days. ADDITIONAL INFORMATION Diverticulitis Some people develop pouches along the wall of the colon as they get older. The pouches,called diverticuli, usually cause no symptoms. If the pouches become blocked, an infection may occur known as diverticulitis. This causes lower abdominal pain and fever. If not treated, it can become a serious condition, causing an abscess to form inside the pouch. The abscess may block the instestinal tract even or rupture, spreading infection throughout the abdomen. When treatment is started early, oral antibiotics alone may be enough to cure diverticulitis. This method is tried first. However, if you do not improve or if your condition worsens while you are trying oral antibiotics, it will be necessary to admit you to the hospital for IV antibiotics. Severe cases may require surgery. Home care The following guidelines will help you care for your diverticulitis at home: During the acute illness, rest and follow a low-fiber diet: Foods to Include: flake cereal, mashed potatoes, pancakes, waffles, pasta, white bread, rice, applesauce, bananas, eggs, meat, fish, poultry, tofu, cooked vegetables. Take antibiotics exactly as directed. Do not miss any doses or stop taking the medication, even if you feel better. Monitor your temperature and report any rising temperature to your doctor. Preventing future attacks Once you have had an episode of diverticulitis, you are at risk of having a recurrence. After you have recovered from this episode, you may be able to reduce your risk by eating a high-fiber diet (2035 gm/day of fiber). This cleans out the colon pouches that already exist and prevent new ones from forming. Foods high in fiber includes fresh fruits and edible peelings, raw or lightly cooked vegetables, whole grain cereals and breads, dried beans and peas, bran. Follow-up care Follow up with your doctor as advised or sooner if you are not improving in the nexttwo days. When to seek medical care Get prompt medical attention if any of the following occur: Fever of 100.4F (38C) or higher, or as directed by your health care provider Repeated vomiting or swelling of the abdomen Weakness, dizziness, light-headedness Increasing abdominal pain that becomes severe or spreads to your back Pain that moves to the right lower abdomen Rectal bleeding (red, black or maroon color of the stools) Unexpected vaginal bleeding How To Quit Smoking Smoking is one of the hardest habits to break. About half of all those who have ever smoked have been able to quit, and most of those (about 70%) who still smoke want to quit. Here are some of the best ways to stop smoking. Keep Trying: It takes most smokers about 8 tries before they are finally able to fully quit. So, the more often you try and fail, the better your chance of quitting the next time! So, don't give up! Go Cold [place]: Most ex-smokers quit cold turkey. Trying to cut back gradually doesn't seem to work as well, perhaps because it continues the smoking habit. Also, it is possible to fool yourself by inhaling more while smoking fewer cigarettes. This results in the same amount of nicotine in your body! Get Support: Support programs can make an important difference, especially for the heavy smoker. These groups offer lectures, methods to change your behavior and peer support. Call the free national Quitline for more information. 490-EYYU-VWA (877-269-1546). Low-cost or free programs are offered by many hospitals, local chapters of the [place] [employer] (090-574-2095) and the [place] [employer] (788-023-6520). Support at home is important too. Non-smokers can help by offering praise and encouragement. If the smoker fails to quit, encourage them to try again! Fmme-Thc-Mwivzoe Medicines: For those who can't quit on their own, Nicotine Replacement Therapy (NRT) may make quitting much easier. Certain aids such as the nicotine patch, gum and lozenge are available without a prescription. However, it is best to use these under the guidance of your doctor. The skin patch provides a steady supply of nicotine to the body. Nicotine gum and lozenge gives temporary bursts of low levels of nicotine. Both methods take the edge off the craving for cigarettes. WARNING: If you feel symptoms of nicotine overdose, such as nausea, vomiting, dizziness, weakness, or fast heartbeat, stop using these and see your doctor. Prescription Medicines: After evaluating your smoking patterns and prior attempts at quitting, your doctor may offer a prescription medicine such as bupropion (Zyban, Wellbutrin), varenicline (Chantix, Champix), a niocotine inhaler or nasal spray. Each has its unique advantage and side effects which your doctor can review with you. Health Benefits Of Quitting: The benefits of quitting start right away and keep improving the longer you go without smokin minutes: blood pressure and pulse return to normal 8 hours: oxygen levels return to normal 2 days: ability to smell and taste begins to improve as damaged nerves start to regrow 2-3 weeks: circulation and lung function improves 1-9 months: decreased cough, congestion and shortness of breath; less tired 1 year: risk of heart attack decreases by half 5 years: risk of lung cancer decreases by half; risk of stroke becomes the same as a non-smoker For information about how to quit smoking, visit the following links: National Cancer [place] , Clearing the Air, Quit Smoking Today - an online booklet. http://www.smokefree.gov/pubs/clearing_the_air.pdf Smokefree.gov http://smokefree.gov/ QuitNet http://www.quitnet.com/ Ciprofloxacin Hydrochloride Oral tablet What is this medicine? CIPROFLOXACIN (sip agusto FLOX a sin) is a quinolone antibiotic. It is used to treat certain kinds of bacterial infections. It will not work for colds, flu, or other viral infections. How should I use this medicine? Take this medicine by mouth with a glass of water. Follow the directions on the prescription label. Take your medicine at regular intervals. Do not take your medicine more often than directed. Take all of your medicine as directed even if you think your are better. Do not skip doses or stop your medicine early. You can take this medicine with food or on an empty stomach. It can be taken with a meal that contains dairy or calcium, but do not take it alone with a dairy product, like milk or yogurt or calcium-fortified juice. A special MedGuide will be given to you by the pharmacist with each prescription and refill. Be sure to read this information carefully each time. Talk to your forest biometrics professor regarding the use of this medicine in children. Special care may be needed. What side effects may I notice from receiving this medicine? Side effects that you should report to your doctor or health day care supervisor as soon as possible: - allergic reactions like skin rash, itching or hives, swelling of the face, lips, or tongue - breathing problems - confusion, nightmares or hallucinations - feeling faint or lightheaded, falls - irregular heartbeat - joint, muscle or tendon pain or swelling - pain or trouble passing urine -persistent headache with or without blurred vision - redness, blistering, peeling or loosening of the skin, including inside the mouth - seizure - unusual pain, numbness, tingling, or weakness Side effects that usually do not require medical attention (report to your doctor or health day care supervisor if they continue or are bothersome): - diarrhea - nausea or stomach upset - white patches or sores in the mouth What may interact with this medicine? Do not take this medicine with any of the following medications: cisapride droperidol terfenadine tizanidine This medicine may also interact with the following medications: antacids caffeine cyclosporin didanosine (ddI) buffered tablets or powder medicines for diabetes medicines for inflammation like ibuprofen, naproxen methotrexate multivitamins omeprazole phenytoin probenecid sucralfate theophylline warfarin What if I miss a dose? If you miss a dose, take it as soon as you can. If it is almost time for your next dose, take only that dose. Do not take double or extra doses. Where should I keep my medicine? Keep out of the reach of children. Store at room temperature below 30 degrees C (86 degrees F). Keep container tightly closed. Throw away any unused medicine after the expiration date. What should I tell my health care provider before I take this medicine? They need to know if you have any of these conditions: -bone problems -cerebral disease -joint problems -irregular heartbeat -kidney disease -liver disease -myasthenia gravis -seizure disorder -tendon problems -an unusual or allergic reaction to ciprofloxacin, other antibiotics or medicines, foods, dyes, or preservatives - or trying to get -breast-feeding What should I watch for while using this medicine? Tell your doctor or health day care supervisor if your symptoms do not improve. Do not treat diarrhea with over the counter products. Contact your doctor if you have diarrhea that lasts more than 2 days or if it is severe and watery. You may get drowsy or dizzy. Do not drive, use machinery, or do anything that needs mental alertness until you know how this medicine affects you. Do not stand or sit up quickly, especially if you are an older patient. This reduces the risk of dizzy or fainting spells. This medicine can make you more sensitive to the sun. Keep out of the sun. If you cannot avoid being in the sun, wear protective clothing and use sunscreen. Do not use sun lamps or tanning beds/booths. Avoid antacids, aluminum, calcium, iron, magnesium, and zinc products for 6 hours before and 2 hours after taking a dose of this medicine. Metronidazole Oral tablet What is this medicine? METRONIDAZOLE (me troe NI da zole) is an antiinfective. It is used to treat certain kinds of bacterial and protozoal infections. It will not work for colds, flu, or other viral infections. How should I use this medicine? Take this medicine by mouth with a full glass of water. Follow the directions on the prescription label. Take your medicine at regular intervals. Do not take your medicine more often than directed. Take all of your medicine as directed even if you think you are better. Do not skip doses or stop your medicine early. Talk to your forest biometrics professor regarding the use of this medicine in children. Special care may be needed. What side effects may I notice from receiving this medicine? Side effects that you should report to your doctor or health day care supervisor as soon as possible: allergic reactions like skin rash or hives, swelling of the face, lips, or tongue confusion, clumsiness difficulty speaking discolored or sore mouth dizziness fever, infection numbness, tingling, pain or weakness in the hands or feet trouble passing urine or change in the amount of urine redness, blistering, peeling or loosening of the skin, including inside the mouth seizures unusually weak or tired vaginal irritation, dryness, or discharge Side effects that usually do not require medical attention (report to your doctor or health day care supervisor if they continue or are bothersome): diarrhea headache irritability metallic taste nausea stomach pain or cramps trouble sleeping What may interact with this medicine? Do not take this medicine with any of the following medications: alcohol or any product that contains alcohol amprenavir oral solution cisapride disulfiram dofetilide dronedarone paclitaxel injection pimozide ritonavir oral solution sertraline oral solution sulfamethoxazole-trimethoprim injection thioridazine ziprasidone This medicine may also interact with the following medications: cimetidine lithium other medicines that prolong the QT interval (cause an abnormal heart rhythm) phenobarbital phenytoin warfarin What if I miss a dose? If you miss a dose, take it as soon as you can. If it is almost time for your next dose, take only that dose. Do not take double or extra doses. Where should I keep my medicine? Keep out of the reach of children. Store at room temperature below 25 degrees C (77 degrees F). Protect from light. Keep container tightly closed. Throw away any unused medicine after the expiration date. What should I tell my health care provider before I take this medicine? They need to know if you have any of these conditions: anemia or other blood disorders disease of the nervous system fungal or yeast infection if you drink alcohol containing drinks liver disease seizures an unusual or allergic reaction to metronidazole, or other medicines, foods, dyes, or preservatives or trying to get breast-feeding What should I watch for while using this medicine? Tell your doctor or health day care supervisor if your symptoms do not improve or if they get worse. You may get drowsy or dizzy. Do not drive, use machinery, or do anything that needs mental alertness until you know how this medicine affects you. Do not stand or sit up quickly, especially if you are an older patient. This reduces the risk of dizzy or fainting spells. Avoid alcoholic drinks while you are taking this medicine and for three days afterward. Alcohol may make you feel dizzy, sick, or flushed. If you are being treated for a sexually transmitted disease, avoid sexual contact until you have finished your treatment. Your sexual partner may also need treatment. Oxycodone Hydrochloride, Acetaminophen Oral tablet What is this medicine? ACETAMINOPHEN; OXYCODONE (a set a MARSHA shira fen; ox i KOE done) is a pain reliever. It is used to treat mild to moderate pain. How should I use this medicine? Take this medicine by mouth with a full glass of water. Follow the directions on the prescription label. Take your medicine at regular intervals. Do not take your medicine more often than directed. Talk to your forest biometrics professor regarding the use of this medicine in children. Special care may be needed. Patients over 65 years old may have a stronger reaction and need a smaller dose. What side effects may I notice from receiving this medicine? Side effects that you should report to your doctor or health day care supervisor as soon as possible: allergic reactions like skin rash, itching or hives, swelling of the face, lips, or tongue breathing difficulties, wheezing confusion light headedness or fainting spells severe stomach pain yellowing of the skin or the whites of the eyes Side effects that usually do not require medical attention (report to your doctor or health day care supervisor if they continue or are bothersome): dizziness drowsiness nausea vomiting What may interact with this medicine? alcohol antihistamines barbiturates like amobarbital, butalbital, butabarbital, methohexital, pentobarbital, phenobarbital, thiopental, and secobarbital benztropine drugs for bladder problems like solifenacin, trospium, oxybutynin, tolterodine, hyoscyamine, and methscopolamine drugs for breathing problems like ipratropium and tiotropium drugs for certain stomach or intestine problems like propantheline, homatropine methylbromide, glycopyrrolate, atropine, belladonna, and dicyclomine general anesthetics like etomidate, ketamine, nitrous oxide, propofol, desflurane, enflurane, halothane, isoflurane, and sevoflurane medicines for depression, anxiety, or psychotic disturbances medicines for sleep muscle relaxants naltrexone narcotic medicines (opiates) for pain phenothiazines like perphenazine, thioridazine, chlorpromazine, mesoridazine, fluphenazine, prochlorperazine, promazine, and trifluoperazine scopolamine tramadol trihexyphenidyl What if I miss a dose? If you miss a dose, take it as soon as you can. If it is almost time for your next dose, take only that dose. Do not take double or extra doses. Where should I keep my medicine? Keep out of the reach of children. This medicine can be abused. Keep your medicine in a safe place to protect it from theft. Do not share this medicine with anyone. Selling or giving away this medicine is dangerous and against the law. Store at room temperature between 20 and 25 degrees C (68 and 77 degrees F). Keep container tightly closed. Protect from light. This medicine may cause accidental overdose and if it is taken by other adults, children, or pets. Flush any unused medicine down the toilet to reduce the chance of harm. Do not use the medicine after the expiration date. What should I tell my health care provider before I take this medicine? They need to know if you have any of these conditions: brain tumor Crohn's disease, inflammatory bowel disease, or ulcerative colitis drink more than 3 alcohol containing drinks per day drug abuse or addiction head injury heart or circulation problems kidney disease or problems going to the bathroom liver disease lung disease, asthma, or breathing problems an unusual or allergic reaction to acetaminophen, oxycodone, other opioid analgesics, other medicines, foods, dyes, or preservatives or trying to get breast-feeding What should I watch for while using this medicine? Tell your doctor or health day care supervisor if your pain does not go away, if it gets worse, or if you have new or a different type of pain. You may develop tolerance to the medicine. Tolerance means that you will need a higher dose of the medication for pain relief. Tolerance is normal and is expected if you take this medicine for a long time. Do not suddenly stop taking your medicine because you may develop a severe reaction. Your body becomes used to the medicine. This does NOT mean you are addicted. Addiction is a behavior related to getting and using a drug for a non-medical reason. If you have pain, you have a medical reason to take pain medicine. Your doctor will tell you how much medicine to take. If your doctor wants you to stop the medicine, the dose will be slowly lowered over time to avoid any side effects. You may get drowsy or dizzy. Do not drive, use machinery, or do anything that needs mental alertness until you know how this medicine affects you. Do not stand or sit up quickly, especially if you are an older patient. This reduces the risk of dizzy or fainting spells. Alcohol may interfere with the effect of this medicine. Avoid alcoholic drinks. There are different types of narcotic medicines (opiates) for pain. If you take more than one type at the same time, you may have more side effects. Give your health care provider a list of all medicines you use. Your doctor will tell you how much medicine to take. Do not take more medicine than directed. Call emergency for help if you have problems breathing. The medicine will cause constipation. Try to have a bowel movement at least every 2 to 3 days. If you do not have a bowel movement for 3 days, call your doctor or health day care supervisor. Do not take Tylenol (acetaminophen) or medicines that have acetaminophen with this medicine. Too much acetaminophen can be very dangerous. Many nonprescription medicines contain acetaminophen. Always read the labels carefully to avoid taking more acetaminophen. You have been given the following additional information: Diverticulitis Smoking Cessation Ciprofloxacin Hydrochloride Oral tablet Metronidazole Oral tablet Oxycodone Hydrochloride, Acetaminophen Oral tablet (Electronically signed by Bentley Abrams DO 05/17/2016 22:25)
== END 2016-05-17 22:10 | disposition home or self-care (01) ==
LOC: ED SRH 19:06
DX: K57.92 Diverticulitis of intestine, part unspecified, without perforation or abscess without bleeding (principal); D72.829 Elevated white blood cell count, unspecified
CPT/HCPCS: 90004; 90100; 90616; 91320; 92235; 92530; 92610; 92720; 93140; 94060; 95059